=== PATIENT | male | born 1950 | race Caucasian/White ===

== ENCOUNTER 2017-10-15 01:23 | Emergency (ER) | payer MEDICARE ==
[~2017-10-15] VITALS: Ht 177.8 cm; Wt 68.0 kg
[~2017-10-15 01:23] MED LIST: CIPROFLOXACIN500 M1; FINASTERIDE5 MG; LORTAB 5 MG/5001 TA1; PRINIVIL10 MG; ZOCOR 20 MG TAB20 M1
[2017-10-15] MEDS ORDERED: MUCINEX D TABL1 EAC1 (01:34)
[2017-10-15] MEDS ORDERED: FLONASE 0.05%50 MCG (01:34)
[2017-10-15] MEDS ORDERED: AMOXIL 875 MG875 M1 (01:34)
[2017-10-15] MEDS ORDERED: ANTIVERT25 MG (01:34)
[2017-10-15 01:35] VITALS: BP 140/79
[2017-10-15] MEDS ORDERED: FLEET ENEMA133 ML RECTAL ×2 (01:47→01:48)
[2017-10-15] MEDS ORDERED: COLACE 100 MG100 MG PO ×2 (01:47→01:48)
== END 2017-10-15 01:55 | disposition home or self-care (01) ==
LOC: M.ERS 01:23
DX: K59.00 Constipation, unspecified (principal); I10 Essential (primary) hypertension; E78.00 Pure hypercholesterolemia, unspecified; Z88.1 Allergy status to other antibiotic agents